=== PATIENT | female | born 1995 | race Caucasian/White ===

== ENCOUNTER 2020-10-10 21:47 | Inpatient (IN) | payer MEDICAID, OTHER ==
[2020-10-10] MEDS ORDERED: Calcium Gluc 4.6 MEQ/10 ML (100 MG/ML) SLOW IVP PRN (22:08)
[2020-10-10 22:23] LABS: #Basophils 0.1 thou/uL (0.0-0.2); #Eosinphils 0.4 thou/uL (0.0-0.7); #Lymphocytes 2.3 thou/uL (1.20-3.40); #Monocytes 0.5 thou/uL (0.11-0.59); %Basophils 0.8 % (0.0-1.0); %Eosinophils 4.9 % (0.0-10.0); %Lymphocytes 32.5 % (21.0-51.0); %Monocytes 6.6 % (0.0-10.0); %Neutrophils 55.2 % (42.0-75.0); Hemoglobin 11.8 g/dL (12.0-16.0); Mean Corpuscular HGB CONC 34.8 g/dL (32.0-36.0); Mean Corpuscular Hemoglobin 31.6 pg (27.0-31.0); Mean Corpuscular Volume 90.8 fL (78.0-98.0); Mean Platelet Volume 7.9 fL (7.4-10.4); Platelet Count 246 thou/uL (130-400); RBC Distribution Width 14.3 % (11.5-14.5); Red Blood Cell (RBC) Count 3.72 mill/uL (4.20-5.40); White Blood Cell (WBC) Count 7.2 thou/uL (4.8-10.8)
--- NOTE | 2020-10-10 22:27 | HP ---
TIME: 2209 hours. Interim H&P CALL FROM THE EMERGENCY ROOM PROVIDER: In brief, I just received a phone call from the emergency room provider on Ms. Law. This patient, by his report, is a 25-year-old, G3, P3, who delivered about 3 days ago with a nurse hebrew teacher who came in because of headache and left arm numbness. In the ER, she was noted to have a blood pressure of 160/110, and so the ER provider was calling about possible transfer to Labor and Delivery for magnesium. I discussed the case with the provider. Due to the atypical neurological complaints including numbness of the left arm, I have requested imaging of the head before transport to make sure that we are not missing any intracranial pathology. The ER provider states that there is no gross neuro findings. I have also asked to get a CMP, CBC, urine toxicology, and I have ordered 4 g IV load over 20 minutes and then to follow that with 1 g/hour. I have also asked for a Feliciano catheter. We will transfer up to Labor and Delivery once the patient's evaluation in the ER has been completed. It is important to note that I did ask for mag to start down in the ER to prevent any delay. I have also asked them to treat her urgent hypertension per protocol. Job ID: [id number] MTDD
--- NOTE | 2020-10-10 22:28 | CT ---
Head CT without contrast 10/10/2020: Comparison: None HISTORY: Left-sided numbness and tingling TECHNIQUE: Axial CT imaging at 5 mm intervals from vertex through skull base without contrast FINDINGS: The visualized paranasal sinuses and mastoid air cells are well-aerated. No displaced kumar rial fracture, intracranial hemorrhage, midline shift, or mass effect. IMPRESSION: No acute findings.
[2020-10-10] MEDS ORDERED: Magnesium Sulfate 20 GM/WATER 500 ML BAG IVPB SCH (22:30)
--- NOTE | 2020-10-10 22:34 | PDOC.LDHP ---
Labor and Delivery H&P HPI: 25yo day 4, delivered at 41wks 1 day at outside birthing center by nurse results engineer, who presents to the ED for headache, L arm numbness, and seeing spots. In the ED her BP was noted to be ~161/110. She experienced preeclampsia with her first child and states this feels similar. She endorses swelling of her lower extremities that has been progressively worsening. ROS: Denies fever, chills, nausea, vomiting, diarrhea, constipation. Endorses minimal lochia, headache, scotoma, paresthesia of the L arm. PMH: none PSH: none OB Hx: Pre-e w/ first . Social: Denies tobacco, alcohol, or illicit drug use. Family Hx: Maternal GM and 18yo sister suddenly from cardiac complications. Grav: 3 Para: 3 Current medications: none Previous surgical history: none Allergies/Adverse Reactions: Allergies Allergy/AdvReac Type Severity Reaction Status Date / Time No Known Drug Allergies Allergy Unverified 10/10/20 22:19 Social history: none - Physical Exam Abnormal vital signs: BP: 161/110, 154/98, 138/88 General: NAD, resting, other (Neuro: A&Ox3) Heart: RRR Lungs: CTAB Abdomen: NTTP Extremeties: other (3+ brisk reflexes.) - OB Labs Additional Labs: Head CT: Negative for acute processes. - Assessment Post- pre-eclampsia suspected: - Workup initiated in the ED. - CBC, CMP, urine protein/creatinine, and BNP pending. - 2+ pitting edema. Will order 20mg IV lasix. - Magnesium initiated in the ED @ approximately 11:00pm - Will perform serial BPs and monitor. - Will monitor urine output and for s/s of mag toxicity. - Admit to L&D for further management.
--- NOTE | 2020-10-10 22:36 | PDOC.BPN ---
- Brief Progress Note CBC wnl
[2020-10-10 22:38] LABS: ALT (SGPT) 25 U/L (8-55); AST (SGOT) 25 U/L (5-34); Albumin 3.5 g/dL (3.5-5.0); Alkaline Phosphatase 130 U/L (40-110); Anion Gap 14 mmol/L (10-20); BUN (Urea Nitrogen) 16 mg/dL (7.0-18.7); Bilirubin, Total 0.3 mg/dL (0.2-1.2); Calc. Creatinine Clearance 0 mL/min (70-130); Calcium 9.3 mg/dL (7.8-10.44); Carbon Dioxide 25 mmol/L (22-29); Chloride 105 mmol/L (98-107); Estimated GFR-MDRD Greater than 90; Globulin 2.6 g/dL (2.4-3.5); Glucose 85 mg/dL (70-105); Magnesium 1.8 mg/dL (1.6-2.6); Protein, Total 6.1 g/dL (6.0-8.3); Sodium 140 mmol/L (136-145)
--- NOTE | 2020-10-10 22:45 | PDOC.BPN ---
- Brief Progress Note CT of head verbally negative per ED provider
[2020-10-10] MEDS ORDERED: Aspirin Chewable 81 MG TAB ONE (22:47)
[2020-10-10 22:58] LABS: Bilirubin Negative (Negative); Blood, Urine Negative (Negative); Clarity Clear (Clear); Glucose, Urine (Dipstick) Normal (Negative); Ketone, Urine Negative (Negative); Leukocyte Negative Leu/uL (Negative); Nitrite Negative (Negative); Protein, Urine (Dipstick) Negative (Neg-Trace); Specific Gravity, Urine 1.008 (1.002-1.036); Urobilinogen Normal mg/dL (Less than 2)
[2020-10-10] MEDS ORDERED: Magnesium Sulfate 20 gm/500 ml 20 GM/500 ML BAG IVPB SCH (23:00)
[2020-10-10 23:08] LABS: Amphetamine Not Detected (NotDetected); Barbiturates Screen Not Detected (NotDetected); Benzodiazepine Screen Not Detected (NotDetected); Cocaine Metabolite Screen Not Detected (NotDetected); Medtox Control Line Valid? VALID (VALID); Medtox Reader # READER 1; Methadone Not Detected (NotDetected); Methamphetamine Not Detected (NotDetected); Opiate Screen Not Detected (NotDetected); Oxycodone Screen Not Detected (NotDetected); Phencyclidine (PCP) Not Detected (NotDetected); THC/Cannabinoid Screen Not Detected (NotDetected); Tricyclic Screen Not Detected (NotDetected)
--- NOTE | 2020-10-10 23:31 | PDOC.BPN ---
- Brief Progress Note Patient now in LDR6. On Magsulfate. Patient seen by me and Dr Claros. Other labs still pending
[2020-10-11] LABS: Creatinine, Urine 28.56 mg/dL (47-110); Protein, Urine Random Quant Less than 10 mg/dL (1-14)
[2020-10-11] MEDS ORDERED: Furosemide 20 MG/2 ML VIAL SLOW IVP SCH ×2 (00:15→07:45)
[2020-10-11 00:55] VITALS: BMI 37.1
[2020-10-11 02:14] LABS: SARS-CoV-2 NAA Rapid Test Not Detected (NotDetected)
--- NOTE | 2020-10-11 03:05 | PDOC.LDPN ---
Labor & Delivery Progress Note - Subjective Subjective: comfortable, other (Denies HERBERT, Chest pain, abdominal pain. ) - Objective Vital signs reviewed and normal: yes Abnormal vital signs: No severe range pressures. Max pressure 153/98. General: NAD, resting, other (RRR. CTAB. Reflexes 2+ bilaterally. Resting comfortably. ) Uterine fundus: non tender Plan: continue plan of care -: 4 hr mag check. She is on magnesium drip. Pressures non-severe range. Will closely monitor. Urine output has been >300mL/hour. s/p Lasix 20mg IVP. Repeat mag check @ 0700.
--- NOTE | 2020-10-11 06:58 | PDOC.LDPN ---
Labor & Delivery Progress Note - Subjective Subjective: comfortable - Objective Vital signs reviewed and normal: yes Abnormal vital signs: No severe range pressures. General: NAD, other (A&O x3. DTRs +2 ) - Assessment (1) Pre-eclampsia, Code(s): O14.95 - UNSPECIFIED PRE-ECLAMPSIA, COMPLICATING THE PUERPERIUM Current Visit: Yes Status: Acute (2) Post term , delivered Code(s): O48.0 - POST-TERM Current Visit: Yes Status: Acute Plan: continue plan of care -: 4 hr mag check. She is on magnesium drip. Pressures non-severe range. Will closely monitor. Urine output has been >300mL/hour. s/p Lasix 20mg IVP x1 Repeat mag check in approximately 4 hours.
[2020-10-11] MEDS: NIFEdipine XL 30 MG TAB PO SCH (09:39)
--- NOTE | 2020-10-11 13:17 | PDOC.BPN ---
- Brief Progress Note Encounter Date: 10/11/20 Encounter Time: 12:56 S: Doing well. Slight HERBERT but does not want Tylenol. Denies SOB, vision changes, fever/chills, CP. LE edema improved. No n/v. In good spirits. O: BP max 147/94. This AM BPs 140s/90s, since 11am have been 120s/80s. BL patellar Reflexs 2+ CTAB RRR no murmurs 1+ pitting edema to ankles, improved UOP 4150cc since admission A/P: 25yo PPD#5 admitted for severe preE -4 hr mag check. -She is on magnesium drip. Started at 2300 on 10/10 -Pressures non-severe range. Now improved after procardia, will cont -Urine output has been >300mL/hour. -s/p Lasix 20mg IVP x2 -Will discontinue mag and alberto. Monitor BP Dispo: Monitor BPs overnight. Large UOP. D/c mag and alberto.
--- NOTE | 2020-10-11 13:50 | PDOC.EVN ---
Event Note - Event Note Event Note: Pt is 14hours of 24 into her iv MAg for seizure prophlyaxis. She has diuresed >4L since arrival. BP are controlled well on procardia xl 30mg. Will DC mag and observe.
[2020-10-11] MEDS: Lactated Ringer's 1,000 ML IV SCH ×2 (17:18)
--- NOTE | 2020-10-12 08:22 | PRG ---
DATE OF SERVICE: 10/12/2020 This is a progress note. SUBJECTIVE: The patient is a 25-year-old female, who delivered in an outside facility, who presented to Labor and Delivery with ultimate diagnosis of preeclampsia with severe features. She is now status post magnesium, on Procardia XL 30 mg daily. In the last 24 hours, blood pressures have been in good control, all within normal to mild range. The patient reports no complaints this morning. OBJECTIVE: VITAL SIGNS: Blood pressure this morning is 132/79, temperature 98.6, pulse of 81, respiratory rate of 18. GENERAL: She appears to be in no acute distress. She is alert, oriented, cooperative, and pleasant to interact with. HEAD: Normocephalic, atraumatic. ASSESSMENT AND PLAN: The patient is a 25-year-old female with preeclampsia with severe features, now on Procardia XL 30 mg daily for good blood pressure control. She is status post magnesium. We will continue to observe blood pressures this morning, and Dr. Patel will be the oncoming physician who will make disposition. Job ID: [id number]
[2020-10-12] MEDS: NIFEdipine XL 30 MG TAB PO SCH (09:41)
[2020-10-12 11:48] VITALS: BP 134/80; TEMP 98.3
--- NOTE | 2020-10-12 12:42 | DIS ---
DATE OF ADMISSION: 10/10/2020 DATE OF DISCHARGE: 10/12/2020 PRINCIPAL DIAGNOSES: 1. hypertension/preeclampsia. 2. Blood pressure monitoring. HISTORY OF HOSPITAL COURSE: In brief, this patient was admitted with me and Dr. Sonal Claros on-call on October 10, 2020. This patient was admitted as a patient about 4 days from a delivery at late term with [facility]. She stated that she was at home and started feeling some headache and a little bit of arm numbness since she came in for possible blood pressure evaluation. In the ER, she was noted to have a blood pressure about 160/110 and so she was treated based on that protocol. She was started on magnesium sulfate in the ER after a brief consultation with me. Due to the atypical findings of tingling in the hands, which is not typical for preeclampsia, I did order a brain CT in the ER. This was on October 10, 2020, and it showed no acute findings. She continued on magnesium sulfate and received IV Lasix for a couple of dosages to help mobilize some excessive fluid and get some swelling off her bilateral lower extremities. This helped her feel better from the swelling of her feet and her blood pressure responded well. I would also start her on Procardia 30 mg p.o. daily on the 2nd day of admission just for extra blood pressure support. I evaluated the patient at bedside on October 12, 2020, at about 12 noon. I explained to her that I would like to keep her overnight until tomorrow, but as she has other children at home, she asked to be discharged. I told her that she should continue with her Procardia 30 mg XL p.o. daily and she should follow up with her blood pressure checked anywhere from three days to no longer than a week . I gave her some names of some physicians including Dr. Dada Murillo, [facility], and others where she can get followup. I evaluated her blood pressures and found them to be ready for discharge with pressures ranging from 124/80 to 134/80. The lowest blood pressure was around midnight on October 12, about 119/79. Her labs are otherwise normal with a hematocrit of 33.8 and normal platelets of 246. Also liver function tests were normal on admission and urine tox was also normal/negative. She had a SARS-CoV-2 rapid which was negative. Her urine protein was negative. Because, she was stable off magnesium sulfate, the plan was to discharge the patient home and she will follow up with her own provider again. Job ID: [id number] WILLAM
== END 2020-10-12 16:45 | disposition home or self-care (01) | DRG 776 ==
LOC: ERS 21:47 → L&D 22:48 → 3SW 10-11 19:07
PROVIDERS: ADMIT Obstetrics & Gynecology; ATTEND Obstetrics & Gynecology
DX: O14.15 Severe pre-eclampsia, complicating the puerperium (principal); Z20.828 Contact with and (suspected) exposure to other viral communicable diseases
CPT/HCPCS: 51702; 70450; 80053; 80306; 81003; 82570; 83615; 83735; 83880; 84156; 84484; 85025; 93005; 96365; 96376; 99285; J1940; J3475; U0002